=== PATIENT | male | born 1990 | race Caucasian/White ===

== ENCOUNTER 2017-08-31 20:06 | Emergency (ER) | payer OTHER | END 2017-09-01 00:08 | disposition home or self-care (01) | LOC: FTE 09-01 00:08 | DX: Z76.0 Encounter for issue of repeat prescription (principal); F17.210 Nicotine dependence, cigarettes, uncomplicated | CPT/HCPCS: 99281; Z7502 ==

== ENCOUNTER 2017-12-17 21:20 | Emergency (ER) | payer OTHER ==
[2017-12-17] MEDS: LEVETIRACETAM 500 MG TAB PO (22:45)
== END 2017-12-17 23:10 | disposition home or self-care (01) ==
LOC: FTE 21:20
DX: Z76.0 Encounter for issue of repeat prescription (principal); F17.210 Nicotine dependence, cigarettes, uncomplicated
CPT/HCPCS: 99283; Z7502